=== PATIENT | female | born 1990 | race Two or more races ===

== ENCOUNTER 2025-05-24 07:37 | Outpatient (CLI) | payer OTHER | END 2025-05-24 07:38 | disposition home or self-care (01) | LOC: PRENATAL 07:37 | PROVIDERS: ATTEND Obstetrics & Gynecology Maternal & Fetal Medicine | DX: O44.00 Complete placenta previa NOS or without hemorrhage, unspecified trimester (principal); O09.519 Supervision of elderly primigravida, unspecified trimester; O43.90 Unspecified placental disorder, unspecified trimester; Z3A.20 20 weeks gestation of pregnancy ==

== ENCOUNTER → 2025-07-18 09:13 | Outpatient (CLI) | payer OTHER | END | disposition home or self-care (01) | LOC: PRENATAL 09:13 | PROVIDERS: ATTEND Obstetrics & Gynecology Maternal & Fetal Medicine | DX: O26.843 Uterine size-date discrepancy, third trimester (principal); O09.513 Supervision of elderly primigravida, third trimester; O43.93 Unspecified placental disorder, third trimester; Z3A.29 29 weeks gestation of pregnancy ==